=== PATIENT | male | born 1980 | race Caucasian/White ===

== ENCOUNTER 2018-02-10 10:54 | Emergency (ER) | payer MEDICAID ==
[~2018-02-10] VITALS: Ht 177.8 cm; Wt 95.0 kg
[2018-02-10] MEDS ORDERED: SODIUM CHLORIDE FLUSH 10ML SYR IVF ONE (11:30)
[2018-02-10] MEDS ORDERED: MORPHINE SULFATE 4 MG/ML, 1ML IVPush PRN (11:30)
[2018-02-10] MEDS ORDERED: PROMETHAZINE 25 MG/ML, 1ML IM ONE (11:30)
[2018-02-10] MEDS ORDERED: SODIUM CHLORIDE 0.9% 1,000ML IVBOLUS ONE (11:30)
[2018-02-10] MEDS ORDERED: PROMETHAZINE 25 MG/ML, 1ML ONE (11:37)
[2018-02-10] MEDS ORDERED: MORPHINE SULFATE 4 MG/ML, 1ML ONE (11:38)
[2018-02-10 12:11] LABS: MEAN CORPUSCULAR HEMOGLOBIN 28.8 pg (27.5-34.5); MEAN CORPUSCULAR HGB CONC 33.9 g/dL (33.2-36.2); MEAN CORPUSCULAR VOLUME 85.2 fL (81-97); MEAN PLATELET VOLUME 7.9 fL (7.4-10.4); PLATELET COUNT 385 x10^3/uL (130-400); RED BLOOD COUNT 5.96 x10^6/uL (4.38-5.82); RED CELL DISTRIBUTION WIDTH 12.5 % (9.4-14.8)
[2018-02-10 12:24] LABS: ALBUMIN 4.5 g/dL (3.4-5.0); ANION GAP 13 mmol/L (5-15); CALCIUM 9.4 mg/dL (8.5-10.1); CHLORIDE 97 mmol/L (98-107)
[2018-02-10 12:27] LABS: ALANINE AMINOTRANSFERASE 25 U/L (12-78); ALKALINE PHOSPHATASE 73 U/L (45-117); BILIRUBIN,TOTAL 1.2 mg/dL (0.2-1.0); CREATININE 1.56 mg/dL (0.7-1.3); TOTAL PROTEIN 8.1 g/dL (6.4-8.2)
[2018-02-10 12:42] LABS: BASOPHILS # (AUTO) 0.05 x10^3/uL (0-0.1); BASOPHILS % (AUTO) 0 % (0-1); EOSINOPHILS # (AUTO) 0.02 x10^3/uL (0-0.4); EOSINOPHILS % (AUTO) 0 % (1-7); LYMPHOCYTES # (AUTO) 1.65 x10^3/uL (1-3.4); LYMPHOCYTES % (AUTO) 8 % (22-44); MD SCAN; MONOCYTES # (AUTO) 1.38 x10^3/uL (0.2-0.8); MONOCYTES % (AUTO) 6 % (2-9); NEUTROPHILS # (AUTO) 18.87 x10^3/uL (1.8-6.8); NEUTROPHILS % (AUTO) 86 % (42-75)
[2018-02-10 12:53] LABS: INTERNATIONAL NORMALIZED RATIO 1.02 (0.93-1.1); PROTHROMBIN TIME 10.5 Seconds (9.6-11.5)
[2018-02-10] MEDS ORDERED: POTASSIUM CHLORIDE 20 MEQ TAB.ER.PRT PO ONE (13:00)
[2018-02-10] MEDS ORDERED: POTASSIUM CHLORIDE 20 MEQ TAB.ER.PRT ONE (13:53)
[2018-02-10 13:56] VITALS: BP 129/94
[2018-02-10] MEDS ORDERED: BENZONATATE 100 MG CAPSULE PO ONE (14:30)
[2018-02-10] MEDS ORDERED: BENZONATATE 100 MG CAPSULE ONE ×2 (14:48→14:51)
== END 2018-02-10 15:01 | disposition home or self-care (01) ==
LOC: ED 14:55
DX: R11.2 Nausea with vomiting, unspecified (principal); E86.0 Dehydration; J02.9 Acute pharyngitis, unspecified; F17.200 Nicotine dependence, unspecified, uncomplicated; Z86.73 Personal history of transient ischemic attack (TIA), and cerebral infarction without residual deficits
CPT/HCPCS: 36415; 74220; 80053; 83690; 85025; 85610; 96361; 96372; 96374; 99285; J2550; J7030

== ENCOUNTER 2018-02-11 13:13 | Emergency (ER) | payer MEDICAID ==
[~2018-02-11] VITALS: Ht 177.8 cm; Wt 96.0 kg
[2018-02-11] MEDS ORDERED: SODIUM CHLORIDE 0.9% 1,000 ML IV ONE (13:54)
[2018-02-11] MEDS ORDERED: SODIUM CHLORIDE FLUSH 10ML SYR IVF ONE (14:00)
[2018-02-11] MEDS ORDERED: SODIUM CHLORIDE 0.9% 1,000ML IVBOLUS ONE (14:00)
[2018-02-11] MEDS ORDERED: FAMOTIDINE 20 MG/2 ML IVP ONE (14:00)
[2018-02-11] MEDS ORDERED: FAMOTIDINE 20 MG/2 ML ONE (14:04)
[2018-02-11 14:26] LABS: MEAN CORPUSCULAR HEMOGLOBIN 29.4 pg (27.5-34.5); MEAN CORPUSCULAR HGB CONC 34.2 g/dL (33.2-36.2); MEAN CORPUSCULAR VOLUME 86.1 fL (81-97); MEAN PLATELET VOLUME 7.9 fL (7.4-10.4); PLATELET COUNT 353 x10^3/uL (130-400); RED BLOOD COUNT 5.62 x10^6/uL (4.38-5.82); RED CELL DISTRIBUTION WIDTH 12.6 % (9.4-14.8)
[2018-02-11 14:35] LABS: ALANINE AMINOTRANSFERASE 21 U/L (12-78); ALBUMIN 3.7 g/dL (3.4-5.0); ANION GAP 10 mmol/L (5-15); CALCIUM 9.2 mg/dL (8.5-10.1); CHLORIDE 99 mmol/L (98-107)
[2018-02-11 14:37] LABS: ALKALINE PHOSPHATASE 65 U/L (45-117); BILIRUBIN,TOTAL 1.2 mg/dL (0.2-1.0); CREATININE 1.15 mg/dL (0.7-1.3); TOTAL PROTEIN 7.5 g/dL (6.4-8.2)
[2018-02-11 14:47] LABS: BASOPHILS # (AUTO) 0.08 x10^3/uL (0-0.1); BASOPHILS % (AUTO) 0 % (0-1); EOSINOPHILS # (AUTO) 0.01 x10^3/uL (0-0.4); EOSINOPHILS % (AUTO) 0 % (1-7); LYMPHOCYTES # (AUTO) 1.46 x10^3/uL (1-3.4); LYMPHOCYTES % (AUTO) 7 % (22-44); MD SCAN; MONOCYTES # (AUTO) 1.47 x10^3/uL (0.2-0.8); MONOCYTES % (AUTO) 7 % (2-9); NEUTROPHILS # (AUTO) 18.77 x10^3/uL (1.8-6.8); NEUTROPHILS % (AUTO) 86 % (42-75)
[2018-02-11] MEDS ORDERED: PROMETHAZINE 25 MG/ML, 1ML ONE (14:54)
[2018-02-11] MEDS ORDERED: PROMETHAZINE 25 MG/ML, 1ML IM ONE (15:00)
[2018-02-11] MEDS ORDERED: POTASSIUM CHLORIDE 20 MEQ PACKET ONE (15:57)
[2018-02-11] MEDS ORDERED: POTASSIUM CHLORIDE 20 MEQ PACKET PO ONE (16:00)
[2018-02-11 16:17] LABS: MICROSCOPIC INDICATED
[2018-02-11] MEDS ORDERED: MAALOX/HYOSCYAMINE/LIDOCAINE 45 ML BTL ONE (16:17)
[2018-02-11] MEDS ORDERED: MAALOX/HYOSCYAMINE/LIDOCAINE 45 ML BTL PO ONE (16:30)
[2018-02-11 16:41] LABS: CULTURE INDICATED? NO
[2018-02-11] MEDS ORDERED: OMNIPAQUE 350 MG/ML, 75ML BOTTLE ONE (17:52)
[2018-02-11] MEDS ORDERED: MORPHINE SULFATE 4 MG/ML, 1ML ONE (18:41)
[2018-02-11] MEDS ORDERED: FLUCONAZOLE 100 MG TABLET PO ONE (19:00)
[2018-02-11] MEDS ORDERED: MORPHINE SULFATE 4 MG/ML, 1ML IVPush ONE (19:00)
[2018-02-11] MEDS ORDERED: FLUCONAZOLE 100 MG TABLET ONE (20:49)
[2018-02-11] MEDS ORDERED: PANTOPRAZOLE 40 MG IV ONE (20:53)
[2018-02-11 21:09] VITALS: BP 159/100
[2018-02-12] MEDS ORDERED: PANTOPRAZOLE 40 MG IV IVPush SCH (09:00)
== END 2018-02-11 21:12 | disposition home or self-care (01) ==
LOC: ED 13:51
DX: K21.0 Gastro-esophageal reflux disease with esophagitis (principal); B37.9 Candidiasis, unspecified; D72.829 Elevated white blood cell count, unspecified; J02.9 Acute pharyngitis, unspecified; B34.9 Viral infection, unspecified; F17.200 Nicotine dependence, unspecified, uncomplicated
CPT/HCPCS: 36415; 71260; 74022; 80053; 81001; 83690; 85025; 87081; 87880; 96361; 96372; 96374; 96375; 99285; C9113; J2550; J7030; Q9967; 87147; S0028

== ENCOUNTER 2020-08-02 22:02 | Emergency (ER) | payer SELFPAY ==
[~2020-08-02] VITALS: Ht 177.8 cm; Wt 103.6 kg
[2020-08-02] MEDS ORDERED: ONDANSETRON ODT 4 MG ONE (22:16)
--- NOTE | 2020-08-02 22:18 | NUR ---
BALBINA ODT GIVEN IN TRIAGE.
[2020-08-02] MEDS ORDERED: SODIUM CHLORIDE FLUSH 10ML SYR IVF ONE (22:30)
[2020-08-02] MEDS ORDERED: MAALOX/HYOSCYAMINE/LIDOCAINE 45 ML BTL PO ONE (22:30)
[2020-08-02] MEDS ORDERED: SODIUM CHLORIDE 0.9% 1,000ML IVBOLUS ONE (22:30)
[2020-08-02] MEDS ORDERED: ONDANSETRON ODT 4 MG PO ONE (22:30)
[2020-08-02] MEDS ORDERED: FAMOTIDINE 20 MG/2 ML IVPush ONE (22:30)
[2020-08-02 22:48] LABS: BASOPHILS % (AUTO) 1 % (0-1); EOSINOPHILS % (AUTO) 0 % (1-7); LYMPHOCYTES % (AUTO) 7 % (22-44); MEAN CORPUSCULAR HEMOGLOBIN 28.7 pg (27.5-34.5); MEAN CORPUSCULAR HGB CONC 33.6 g/dL (33.2-36.2); MONOCYTES % (AUTO) 2 % (2-9); NEUTROPHILS % (AUTO) 91 % (42-75); PLATELET COUNT 401 x10^3/uL (130-400); RED BLOOD COUNT 6.15 x10^6/uL (4.38-5.82); RED CELL DISTRIBUTION WIDTH 12.8 % (9.4-14.8)
[2020-08-02 22:51] LABS: MD NO
[2020-08-02 22:56] LABS: ALANINE AMINOTRANSFERASE 63 U/L (12-78); ALBUMIN 4.6 g/dL (3.4-5.0); ANION GAP 10 mmol/L (5-15); CALCIUM 9.8 mg/dL (8.5-10.1); CHLORIDE 104 mmol/L (98-107); CREATININE 1.61 mg/dL (0.7-1.3)
[2020-08-02 23:01] LABS: ALKALINE PHOSPHATASE 87 U/L (45-117); BILIRUBIN,TOTAL 0.5 mg/dL (0.2-1.0); TOTAL PROTEIN 8.9 g/dL (6.4-8.2); TROPONIN I < 0.015 ng/mL (0.000-0.045)
--- NOTE | 2020-08-02 23:10 | NUR ---
pt to room from lobby
[2020-08-02] MEDS ORDERED: FAMOTIDINE 20 MG/2 ML ONE (23:15)
[2020-08-02] MEDS ORDERED: MAALOX/HYOSCYAMINE/LIDOCAINE 45 ML BTL ONE (23:15)
[2020-08-02] MEDS ORDERED: OMNIPAQUE 350 MG/ML, 100ML BOTTLE ONE (23:25)
--- NOTE | 2020-08-02 23:25 | NUR ---
first contact with gladys
[2020-08-02] MEDS ORDERED: SODIUM CHLORIDE 0.9%, 500ML IVBOLUS ONE (23:30)
--- NOTE | 2020-08-02 23:52 | NUR ---
per dr moore no sepsis workup at this time due to symptoms being GI related.
[2020-08-03] MEDS ORDERED: ONDANSETRON 2MG/ML, 2ML IVPush ONE (00:30)
[2020-08-03] MEDS ORDERED: ONDANSETRON 2MG/ML, 2ML ONE (00:32)
[2020-08-03 01:08] VITALS: BP 133/90
== END 2020-08-03 01:42 | disposition home or self-care (01) ==
LOC: ED 23:37
DX: E86.0 Dehydration (principal); R11.2 Nausea with vomiting, unspecified; R00.0 Tachycardia, unspecified; K21.9 Gastro-esophageal reflux disease without esophagitis; F17.210 Nicotine dependence, cigarettes, uncomplicated
CPT/HCPCS: 36415; 74177; 80053; 83690; 84484; 85025; 93005; 96374; 96375; 99285; J2405; J7030; J7040; Q0162; Q9967

== ENCOUNTER 2021-05-10 11:30 | Emergency (ER) | payer SELFPAY ==
[~2021-05-10] VITALS: Ht 177.8 cm; Wt 97.0 kg
[2021-05-10 12:10] LABS: BASOPHILS % (AUTO) 1 % (0-1); EOSINOPHILS % (AUTO) 1 % (1-7); LYMPHOCYTES % (AUTO) 18 % (22-44); MEAN CORPUSCULAR HEMOGLOBIN 28.7 pg (27.5-34.5); MEAN PLATELET VOLUME 7.6 fL (7.4-10.4); MONOCYTES % (AUTO) 4 % (2-9); NEUTROPHILS % (AUTO) 77 % (42-75); PLATELET COUNT 364 x10^3/uL (130-400); RED BLOOD COUNT 5.97 x10^6/uL (4.38-5.82); RED CELL DISTRIBUTION WIDTH 12.5 % (9.4-14.8)
[2021-05-10 12:19] LABS: ALBUMIN 4.2 g/dL (3.4-5.0); ANION GAP 10 mmol/L (5-15); CALCIUM 9.3 mg/dL (8.5-10.1); CHLORIDE 106 mmol/L (98-107)
[2021-05-10 12:24] LABS: ALANINE AMINOTRANSFERASE 54 U/L (12-78); ALKALINE PHOSPHATASE 79 U/L (45-117); BILIRUBIN,TOTAL 0.4 mg/dL (0.2-1.0); CREATININE 1.26 mg/dL (0.7-1.3); TOTAL PROTEIN 7.8 g/dL (6.4-8.2)
--- NOTE | 2021-05-10 15:20 | NUR ---
recheck vs at 1520
--- NOTE | 2021-05-10 15:44 | NUR ---
PT AMBULATED WITH STEADY GAIT TO ROOM FROM LOBBY AT THIS TIME.
[2021-05-10] MEDS ORDERED: ONDANSETRON ODT 4 MG ONE (15:51)
[2021-05-10] MEDS ORDERED: FAMOTIDINE 20 MG TABLET ONE (16:17)
[2021-05-10] MEDS ORDERED: MAALOX/HYOSCYAMINE/LIDOCAINE 45 ML BTL ONE (16:18)
[2021-05-10 16:21] VITALS: BP 152/99
--- NOTE | 2021-05-10 16:21 | NUR ---
MEDS ADMIN PER OCT. PT STATES NAUSEA IS A LITTLE BETTER.
[2021-05-10] MEDS ORDERED: MAALOX/HYOSCYAMINE/LIDOCAINE 45 ML BTL PO ONE (16:30)
[2021-05-10] MEDS ORDERED: ONDANSETRON ODT 4 MG PO ONE (16:30)
[2021-05-10] MEDS ORDERED: FAMOTIDINE 20 MG TABLET PO/NG ONE (16:30)
== END 2021-05-10 17:17 ==
LOC: ED 16:50
DX: K29.00 Acute gastritis without bleeding (principal); R11.2 Nausea with vomiting, unspecified; K21.9 Gastro-esophageal reflux disease without esophagitis
CPT/HCPCS: 36415; 71045; 80053; 83690; 85025; 99284; Q0162